=== PATIENT | female | born 1965 | race Caucasian/White ===

== ENCOUNTER 2016-09-05 10:55 | Emergency (ER) | payer BC ==
[~2016-09-05] VITALS: Wt 63.5 kg
[~2016-09-05 10:55] MED LIST: FLEXERIL5 MG PO; KEFLEX500 MG PO; MOTRIN800 MG PO; NKHM; VIBRA-TAB100 MG PO
[2016-09-05] MEDS ORDERED: PREDNISONE10 MG PO (11:14)
[2016-09-05] MEDS ORDERED: 'PARAFON FORTE500 M1 PO (11:14)
== END 2016-09-05 14:06 | disposition home or self-care (01) ==
LOC: ED 10:55
DX: R20.0 Anesthesia of skin (principal); R20.2 Paresthesia of skin; R03.0 Elevated blood-pressure reading, without diagnosis of hypertension

== ENCOUNTER 2019-12-09 04:52 | Emergency (ER) | payer BC ==
[~2019-12-09] VITALS: Ht 172.7 cm; Wt 65.5 kg
[~2019-12-09 04:52] MED LIST changes: +'PARAFON FORTE500 M1 PO; +PREDNISONE10 MG PO
[2019-12-09 06:35] LABS: BASO % 0.5 % (0.0-1.0); EOS # 0.1 10*3/uL (0.0-0.4); EOS % 1.1 % (1.0-4.0); HEMATOCRIT 36.3 % (37.0-47.0); LYMPH # 1.5 10*3/uL (1.3-4.4); LYMPH % 22.6 % (27.0-41.0); MEAN CELL VOLUME 87.3 fl (81.0-99.0); MEAN CORPUSCULAR HGB 28.8 pg (27.0-31.0); MEAN CORPUSCULAR HGB CONC 33.1 g/dl (33.0-37.0); MEAN PLATELET VOLUME 9.5 fl (9.6-12.3); MONO # 0.8 10*3/uL (0.1-1.0); MONO % 12.2 % (3.0-9.0); NEUT # 4.1 10*3/uL (2.3-7.9); NEUT % 63.3 % (47.0-73.0); PLATELET COUNT AUTOMATED 305 10*3/uL (130-400); RED BLOOD COUNT 4.16 10*6/uL (4.10-5.10); RED CELL DISTRI WIDTH 13.1 % (0-14.5); WHITE BLOOD COUNT 6.5 10*3/uL (4.8-10.8)
[2019-12-09 06:50] LABS: ALBUMIN 3.7 gm/dl (3.1-4.5); ALKALINE PHOSPHATASE 64 U/L (45-117); BUN 13 mg/dl (7-24); CHLORIDE 108 mmol/L (98-107); CREATININE 0.88 mg/dL (0.55-1.02); POTASSIUM 3.4 mmol/L (3.5-5.1); SGOT/AST 9 IU/L (3-35); SGPT/ALT 17 U/L (12-78); SODIUM 140 mmol/L (136-145); TOTAL PROTEIN 6.8 gm/dL (6.4-8.2)
[2019-12-09 06:53] LABS: TROPONIN I < 0.015 ng/ml (<0.045)
== END 2019-12-09 07:22 | disposition home or self-care (01) ==
LOC: ED 04:52
PROVIDERS: Emergency Medicine
DX: T50.905A Adverse effect of unspecified drugs, medicaments and biological substances, initial encounter (principal); F41.9 Anxiety disorder, unspecified; R10.32 Left lower quadrant pain; M19.90 Unspecified osteoarthritis, unspecified site; Z79.899 Other long term (current) drug therapy; Y92.89 Other specified places as the place of occurrence of the external cause

== ENCOUNTER → 2020-02-29 | Outpatient (CLI) | payer BC | END | disposition home or self-care (01) | LOC: COVID19 00:47 | PROVIDERS: ATTEND Family Medicine | DX: Z20.828 Contact with and (suspected) exposure to other viral communicable diseases (principal) ==

== ENCOUNTER → 2020-06-18 | Outpatient (CLI) | payer BC | END | disposition home or self-care (01) | LOC: COVID19 16:23 | PROVIDERS: ATTEND Family Medicine | DX: Z20.822 Contact with and (suspected) exposure to COVID-19 (principal) ==

== ENCOUNTER 2021-01-07 11:19 | Emergency (ER) | payer BC ==
[~2021-01-07] VITALS: Ht 172.7 cm; Wt 68.0 kg
[2021-01-07 12:17] LABS: BASO # 0.1 10*3/uL (0.0-0.1); BASO % 0.8 % (0.0-1.0); EOS % 0.5 % (1.0-4.0); HEMATOCRIT 39.1 % (37.0-47.0); LYMPH # 0.9 10*3/uL (1.3-4.4); LYMPH % 14.4 % (27.0-41.0); MEAN CELL VOLUME 89.9 fl (81.0-99.0); MEAN CORPUSCULAR HGB 29.7 pg (27.0-31.0); MEAN PLATELET VOLUME 8.8 fl (9.6-12.3); MONO # 0.5 10*3/uL (0.1-1.0); NEUT % 76.1 % (47.0-73.0); PLATELET COUNT AUTOMATED 328 10*3/uL (130-400); RED BLOOD COUNT 4.35 10*6/uL (4.10-5.10); RED CELL DISTRI WIDTH 13.1 % (0-14.5); WHITE BLOOD COUNT 6.5 10*3/uL (4.8-10.8)
[2021-01-07 12:33] LABS: ALBUMIN 4.1 gm/dl (3.1-4.5); ALKALINE PHOSPHATASE 76 U/L (45-117); BUN 15 mg/dl (7-24); CHLORIDE 109 mmol/L (98-107); CREATININE 0.76 mg/dL (0.55-1.02); POTASSIUM 4.2 mmol/L (3.5-5.1); SGOT/AST 13 IU/L (3-35); SGPT/ALT 28 U/L (12-78); SODIUM 140 mmol/L (136-145); TOTAL PROTEIN 7.5 gm/dL (6.4-8.2)
[2021-01-07 12:50] LABS: TROPONIN I < 0.015 ng/ml (<0.045)
[2021-01-07] MEDS ORDERED: PREDNISONE20 M1 PO (16:35)
== END 2021-01-07 16:43 | disposition home or self-care (01) ==
LOC: ED 11:19
PROVIDERS: Physician Assistant
DX: U07.1 COVID-19 (principal); Z91.040 Latex allergy status

== ENCOUNTER → 2021-04-23 | Outpatient (CLI) | payer BC ==
[~2021-04-23] MED LIST changes: +PREDNISONE20 M1 PO
== END | disposition home or self-care (01) ==
LOC: COVID19 15:31
PROVIDERS: ATTEND Internal Medicine
DX: Z11.52 Encounter for screening for COVID-19 (principal); Z20.822 Contact with and (suspected) exposure to COVID-19

== ENCOUNTER → 2021-04-30 | Outpatient (CLI) | payer BC | END | disposition home or self-care (01) | LOC: COVID19 15:45 | PROVIDERS: ATTEND Internal Medicine | DX: Z11.52 Encounter for screening for COVID-19 (principal) ==

== ENCOUNTER 2021-10-24 06:22 | Emergency (ER) | payer BC ==
[~2021-10-24] VITALS: Ht 175.2 cm; Wt 68.0 kg
[2021-10-24] MEDS ORDERED: PREDNISONE5 MG PO (06:35)
[2021-10-24 07:57] LABS: BASO % 0.6 % (0.0-1.0); EOS # 0.1 10*3/uL (0.0-0.4); EOS % 2.7 % (1.0-4.0); HEMATOCRIT 40.1 % (37.0-47.0); LYMPH # 1.8 10*3/uL (1.3-4.4); LYMPH % 34.7 % (27.0-41.0); MEAN CELL VOLUME 88.9 fl (81.0-99.0); MEAN CORPUSCULAR HGB CONC 32.7 g/dl (33.0-37.0); MEAN PLATELET VOLUME 8.8 fl (9.6-12.3); MONO # 0.6 10*3/uL (0.1-1.0); MONO % 12.5 % (3.0-9.0); NEUT # 2.5 10*3/uL (2.3-7.9); NEUT % 49.3 % (47.0-73.0); PLATELET COUNT AUTOMATED 333 10*3/uL (130-400); RED BLOOD COUNT 4.51 10*6/uL (4.10-5.10); RED CELL DISTRI WIDTH 13.6 % (0-14.5); WHITE BLOOD COUNT 5.1 10*3/uL (4.8-10.8)
[2021-10-24 08:06] LABS: ACT PARTIAL THROMBO TIME 28.2 SECONDS (20.0-32.1); INTERNATIONAL NORM RATIO 0.9 (2.0-3.5)
[2021-10-24 08:14] LABS: ALKALINE PHOSPHATASE 79 U/L (45-117); BUN 12 mg/dl (7-24); CHLORIDE 105 mmol/L (98-107); CREATININE 0.82 mg/dL (0.55-1.02); LIPASE 90 U/L (73-393); POTASSIUM 4.3 mmol/L (3.5-5.1); SGOT/AST 18 IU/L (3-35); SGPT/ALT 22 U/L (12-78); SODIUM 138 mmol/L (136-145); TOTAL PROTEIN 7.5 gm/dL (6.4-8.2)
[2021-10-24] MEDS ORDERED: PREDNISONE50 MG PO (08:47)
== END 2021-10-24 09:27 | disposition home or self-care (01) ==
LOC: ED 06:22
PROVIDERS: Emergency Medicine
DX: S46.912A Strain of unspecified muscle, fascia and tendon at shoulder and upper arm level, left arm, initial encounter (principal); Z91.040 Latex allergy status; Z79.899 Other long term (current) drug therapy; Z90.89 Acquired absence of other organs; X58.XXXA Exposure to other specified factors, initial encounter; Y93.29 Activity, other involving ice and snow; Y92.89 Other specified places as the place of occurrence of the external cause; Y99.8 Other external cause status

== ENCOUNTER 2023-01-14 04:36 | Emergency (ER) | payer BC ==
[~2023-01-14] VITALS: Ht 175.2 cm; Wt 71.3 kg
[~2023-01-14 04:36] MED LIST changes: +PREDNISONE5 MG PO; +PREDNISONE50 MG PO
[2023-01-14] MEDS ORDERED: METHOTREXATE S2.5 M1 PO (04:54)
[2023-01-14] MEDS ORDERED: NATURE'S BLEND F1 MG PO (04:55)
[2023-01-14 05:48] LABS: ALKALINE PHOSPHATASE 76 U/L (46-116); BUN 14 mg/dl (9-23); CHLORIDE 107 mmol/L (98-107); POTASSIUM 3.8 mmol/L (3.4-5.1); SGPT/ALT 16 U/L (10-49)
[2023-01-14 05:58] LABS: BASO % 0.7 % (0.0-1.0); EOS # 0.1 10*3/uL (0.0-0.4); EOS % 2.4 % (1.0-4.0); HEMATOCRIT 38.3 % (37.0-47.0); LYMPH # 1.8 10*3/uL (1.3-4.4); LYMPH % 32.4 % (27.0-41.0); MEAN CELL VOLUME 91.4 fl (81.0-99.0); MEAN CORPUSCULAR HGB 30.5 pg (27.0-31.0); MEAN CORPUSCULAR HGB CONC 33.4 g/dl (33.0-37.0); MEAN PLATELET VOLUME 9.1 fl (9.6-12.3); MONO # 0.7 10*3/uL (0.1-1.0); MONO % 12.7 % (3.0-9.0); NEUT # 2.8 10*3/uL (2.3-7.9); NEUT % 50.7 % (47.0-73.0); PLATELET COUNT AUTOMATED 331 10*3/uL (130-400); RED BLOOD COUNT 4.19 10*6/uL (4.10-5.10); RED CELL DISTRI WIDTH 13.4 % (0-14.5); WHITE BLOOD COUNT 5.5 10*3/uL (4.8-10.8)
[2023-01-14 06:09] LABS: BILIRUBIN Negative (Negative); BLOOD Negative (Negative); CLARITY Clear (Clear); COLOR Yellow (Yellow); GLUCOSE Negative (Negative); KETONE Negative (Negative); LEUKO ESTERASE 1+ (Negative); NITRITE Negative (Negative); SPECIFIC GRAVITY <= 1.005 (1.001-1.030); UROBILINOGEN 0.2 E.U./dl (0.0-1.0)
[2023-01-14 06:16] LABS: URINE AMPHETAMINES Negative (1000ng/ml); URINE BARBITURATES Negative (200ng/ml); URINE BENZODIAZEPINES Negative (200ng/ml); URINE CANNABINOIDS (THC) Negative (50ng/ml); URINE COCAINE Negative (300ng/ml); URINE METHADONE Negative (300ng/ml); URINE OPIATES Negative (300ng/ml); URINE PHENCYCLIDINE Negative (25ng/ml)
[2023-01-14 06:25] LABS: ACT PARTIAL THROMBO TIME 29.5 SECONDS (20.0-32.1)
[2023-01-14 06:26] LABS: RBC 0-2 rbc/hpf (0-2)
== END 2023-01-14 09:40 | disposition home or self-care (01) ==
LOC: ED 04:36
PROVIDERS: Internal Medicine
DX: R00.2 Palpitations (principal); M19.90 Unspecified osteoarthritis, unspecified site; F41.9 Anxiety disorder, unspecified; Z91.040 Latex allergy status; Z98.890 Other specified postprocedural states; Z79.899 Other long term (current) drug therapy

== ENCOUNTER → 2024-11-16 | Outpatient (CLI) | payer BC ==
[~2024-11-16] MED LIST changes: +METHOTREXATE S2.5 M1 PO; +NATURE'S BLEND F1 MG PO
[2024-11-16 17:35] LABS: BASO % 0.9 % (0.0-1.0); EOS # 0.1 10*3/uL (0.0-0.4); EOS % 2.2 % (1.0-4.0); HEMATOCRIT 37.4 % (37.0-47.0); MEAN CELL VOLUME 88.2 fl (81.0-99.0); MEAN CORPUSCULAR HGB 29.7 pg (27.0-31.0); MEAN CORPUSCULAR HGB CONC 33.7 g/dl (33.0-37.0); MEAN PLATELET VOLUME 8.9 fl (9.6-12.3); MONO # 0.5 10*3/uL (0.1-1.0); NEUT # 2.2 10*3/uL (2.3-7.9); NEUT % 47.6 % (47.0-73.0); PLATELET COUNT AUTOMATED 307 10*3/uL (130-400); RED BLOOD COUNT 4.24 10*6/uL (4.10-5.10); RED CELL DISTRI WIDTH 13.5 % (0-14.5); WHITE BLOOD COUNT 4.6 10*3/uL (4.8-10.8)
[2024-11-16 18:01] LABS: ALKALINE PHOSPHATASE 76 U/L (46-116); BUN 9 mg/dl (9-23); CHLORIDE 104 mmol/L (98-107); SGPT/ALT 11 U/L (5-49); VITAMIN D, 25-HYDROXY 29.8 ng/mL (30-100)
== END | disposition home or self-care (01) ==
LOC: LAB 17:11
PROVIDERS: ATTEND Family Medicine
DX: M79.609 Pain in unspecified limb (principal); R53.83 Other fatigue